=== PATIENT | male | born 1930 | race Caucasian/White ===

== ENCOUNTER → 2017-01-04 | Outpatient (CLI) | payer MEDICARE ==
--- NOTE | 2017-01-04 15:51 | REP ---
MRI LUMBAR SPINE WITHOUT CONTRAST: 01/04/2017. Clinical history: Low back pain, spondylosis without myelopathy. Technique: Sagittal T1, T2 and STIR images with axial T1 and T2 sequences. Findings: No prior studies available. Normal lordosis is maintained in the lumbar spine. Vertebral body heights are intact. There is disc space narrowing at all levels except for L3-4. There is loss of disc water signal at all levels, but least at L1-2 and L3-4. Conus terminates at the lower aspect of L2. The T9-10, T10-11, T11-12, T12-L1 disc levels all show no significant disc bulge herniation and no spinal or foraminal stenosis on the sagittal image sets. At L1-2 there is mild broad-based disc bulge with facet arthropathy and ligamentum flavum hypertrophy but cross-sectional area of the canal was adequate. Foramina show no L1 nerve root compression. At L2-3 there is a broad-based disc bulge flattening the ventral thecal sac along with ligamentum flavum facet hypertrophy. This causes some very mild central canal stenosis. The foramina show L2 nerve root compression on the left with the right only minimally adequate with loss of perineural fat. At L3-L4 there is posterior osteophytic ridge and broad-based disc bulge, ligamentum flavum and facet hypertrophy creating a moderately severe central canal stenosis with lateral recess stenosis and crowding of markings. There is fluid in the facet joints. Bilateral foraminal encroachment with nerve root compression left side and right side for those L3 roots. At L4-L5 there is a 5 mm anterolisthesis of L4 on L5 due to facet arthropathy. No definite spondylolysis. Central canal shows tight stenosis due to combined factors with ligamentum and facet hypertrophy, spondylolisthesis and facet arthropathy. Foramina show bilateral L4 nerve root compression. At L5-S1 there is a broad-based disc bulge with central disc protrusion, ligamentum flavum and facet hypertrophic changes noted. This combines to cause some central canal stenosis. The bulge abuts and displaces the S1 nerve root on the left and only abuts it on the right side of the neural canal. The foramina show bilateral narrowing with loss of perineural fat and nerve root compression on the left, minimally on the right. Multiple parapelvic and exophytic cysts in the kidneys are suggested. This is an incomplete evaluation for that. No other significant findings. Impression: 1. Multilevel degenerative disc disease with significant spinal stenosis at L4-5 with bilateral foraminal encroachment and also moderate spinal stenosis at L5-S1 and L3-4 due to combined factors with some foraminal encroachment and nerve root compression as described. Lesser degenerative disc disease at L1-2 and L2-3, and levels the levels in the lower thoracic spine were intact. 2. 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 No spondylolysis. Signed by Javon Aldrich MD 01/04/2017 05:25 P
== END ==
LOC: M RAD 13:09
PROVIDERS: ATTEND Pain Medicine Interventional Pain Medicine
DX: M47.817 Spondylosis without myelopathy or radiculopathy, lumbosacral region (principal); M51.36 Other intervertebral disc degeneration, lumbar region; M51.37 Other intervertebral disc degeneration, lumbosacral region

== ENCOUNTER → 2017-03-15 | Day surgery (SDC) | payer MEDICARE ==
[~2017-03-15] VITALS: Ht 172.7 cm; Wt 90.7 kg
[~2017-03-15] MED LIST: ACETAMINOPHEN 325 MG TAB PO PRN; AMLO5CAP52 PO; ATOR1TAB19 PO; AcetaZOLAMIDE 500 MG ER CAP As Ordered ONE; AcetaZOLAMIDE 500 MG ER CAP PO ONE; BSS with VANC/TOB/EPI for EYE CASES IR ONE; COLC1CAP PO; CYCLOPENTOLATE 2% OPHTH SOLN 2ML BTL OD ONE; FISH1000 PO; FOLI800C PO; GLUC1CAP9 PO; HEALON DUET (HEALON 10MG/ML 0.55ML & HEALON ENDOCOAT 30MG/ML 0.85ML) As Ordered ONE; HYDR25TAB PO; LIDOCAINE 1% SDV 5 ML VIAL As Ordered ONE; LIDOCAINE 4% INJ 5 ML AMP OU ONE; LOTR10CA PO; LOTR10CA2 PO; MAGN250T7 PO; MIDAZOLAM INJ 2 MG/2 ML VIAL (J2250) As Ordered ONE; MOXIFLOXACIN IN BSS 0.25MG/0.25ML INTRACAMERAL INJ (OR EYE ONLY)(J2280) As Ordered ONE; OFLOXACIN 0.3 % (OCUFLOX) OPTH SOL 5ML OD ONE; PHENYLEPHRINE 2.5% OPHTH SOL 2ML OD ONE; POVIDONE-IODINE 5% OPHTH PREP SOL 30ML As Ordered ONE; PROPARACAINE 0.5% OPHTH SOL 15ML OD PRN; TRIAMCINOLONE PRES FR 40 MG/ML 1ML(TRIESENCE)(OR EYE ONLY)(J3300 PER 1MG) As Ordered ONE; TRIMETHOBENZAMIDE 300 MG CAP PO PRN; TROPICAMIDE 1% OPHTH SOLN 2ML OD ONE; VITA100T20 PO; fentaNYL 100 MCG/2 ML INJECTION (J3010) As Ordered ONE
[2017-03-15 11:15] VITALS: BP 165/76
--- NOTE | 2017-03-29 06:01 | RO ---
DATE OF PROCEDURE: 03/15/2017 PREPROCEDURE DIAGNOSIS: Cataract right eye. POSTPROCEDURE DIAGNOSIS: Cataract right eye. PROCEDURE: Phacoemulsification with intraocular lens implantation of PCB00 power 10 Diopter. SURGEON: Vitaly Shepherd MD. DIGITAL FORENSIC EXAMINER: None. ANESTHESIA: COMPLICATIONS: None. DESCRIPTION OF PROCEDURE: The patient was brought to the operating room and laid in supine position. The right eye was prepped and draped in a sterile fashion for opthalmic surgery and a lid speculum was placed. A sideport incision was made and EndoCoat was injected into the anterior chamber. This was followed by temporal clear corneal incision followed by capsulorrhexis. Hydrodissection was then done followed by phacoemulsification in divide and conquer method. This was followed by aspiration of the cortical material and placement of Healon in the capsular bag. Intraocular lens was then inserted. Excess viscoelastic was aspirated. Intracameral moxifloxacin was given. Wound was hydrated. No leaks were noted and sub-tenon injection of Kenalog was given. Lid speculum removed. The patient was returned to the recovery room in stable condition.
== END | disposition home or self-care (01) ==
LOC: M SDC 08:22
PROVIDERS: ATTEND Ophthalmology
DX: H25.9 Unspecified age-related cataract (principal); I10 Essential (primary) hypertension; E78.5 Hyperlipidemia, unspecified; K21.9 Gastro-esophageal reflux disease without esophagitis; M10.9 Gout, unspecified; Z79.899 Other long term (current) drug therapy; Z88.8 Allergy status to other drugs, medicaments and biological substances
CPT/HCPCS: 66984; J2250; J2280; J3010; J3300; V2632

== ENCOUNTER 2017-05-06 12:51 | Emergency (ER) | payer MEDICARE ==
[~2017-05-06] VITALS: Ht 172.7 cm; Wt 90.9 kg
[~2017-05-06 12:51] MED LIST changes: -ACETAMINOPHEN 325 MG TAB PO PRN; -AcetaZOLAMIDE 500 MG ER CAP As Ordered ONE; -AcetaZOLAMIDE 500 MG ER CAP PO ONE; -BSS with VANC/TOB/EPI for EYE CASES IR ONE; -COLC1CAP PO; -CYCLOPENTOLATE 2% OPHTH SOLN 2ML BTL OD ONE; -FISH1000 PO; -FOLI800C PO; -GLUC1CAP9 PO; -HEALON DUET (HEALON 10MG/ML 0.55ML & HEALON ENDOCOAT 30MG/ML 0.85ML) As Ordered ONE; -LIDOCAINE 1% SDV 5 ML VIAL As Ordered ONE; -LIDOCAINE 4% INJ 5 ML AMP OU ONE; -MAGN250T7 PO; -MIDAZOLAM INJ 2 MG/2 ML VIAL (J2250) As Ordered ONE; -MOXIFLOXACIN IN BSS 0.25MG/0.25ML INTRACAMERAL INJ (OR EYE ONLY)(J2280) As Ordered ONE; -OFLOXACIN 0.3 % (OCUFLOX) OPTH SOL 5ML OD ONE; -PHENYLEPHRINE 2.5% OPHTH SOL 2ML OD ONE; -POVIDONE-IODINE 5% OPHTH PREP SOL 30ML As Ordered ONE; -PROPARACAINE 0.5% OPHTH SOL 15ML OD PRN; -TRIAMCINOLONE PRES FR 40 MG/ML 1ML(TRIESENCE)(OR EYE ONLY)(J3300 PER 1MG) As Ordered ONE; -TRIMETHOBENZAMIDE 300 MG CAP PO PRN; -TROPICAMIDE 1% OPHTH SOLN 2ML OD ONE; -VITA100T20 PO; -fentaNYL 100 MCG/2 ML INJECTION (J3010) As Ordered ONE
[2017-05-06 12:52] VITALS: BP 175/83
[2017-05-06] MEDS ORDERED: VITA100T20 PO (13:09)
[2017-05-06] MEDS ORDERED: MAGN250T7 PO (13:09)
[2017-05-06] MEDS ORDERED: FOLI800C PO (13:09)
[2017-05-06] MEDS ORDERED: GLUC1CAP9 PO (13:09)
[2017-05-06] MEDS ORDERED: FISH1000 PO (13:09)
[2017-05-06] MEDS ORDERED: COLC1CAP PO (13:59)
--- NOTE | 2017-05-06 14:02 | REP ---
Clinical: Pain and swelling. Technique: AP, lateral, bilateral oblique views of the left foot. Findings: Age-related osteopenia and diffuse degenerative changes are appreciated. No acute fracture dislocation. No periosteal reaction. No subcutaneous emphysema or foreign body identified. Impression: Age-related osteopenia and degenerative changes. Signed by Janusz Mccracken MD 05/06/2017 01:53 P
== END 2017-05-06 14:08 | disposition home or self-care (01) ==
LOC: M ED 12:51
DX: M25.475 Effusion, left foot (principal); M10.9 Gout, unspecified; I10 Essential (primary) hypertension; E78.5 Hyperlipidemia, unspecified; Z79.899 Other long term (current) drug therapy; Z88.8 Allergy status to other drugs, medicaments and biological substances

== ENCOUNTER → 2018-06-04 | Outpatient (REF) | payer MEDICARE ==
[2018-06-04 18:36] LABS: CPK CREATINE PHOSPHOKINASE 171 U/L (39-308)
[2018-06-07 00:09] LABS: ALDOLASE 6.6 U/L (3.3-10.3)
== END ==
LOC: M LABNEURO 16:59
DX: R26.89 Other abnormalities of gait and mobility (principal); R53.83 Other fatigue
CPT/HCPCS: 82550

== ENCOUNTER → 2019-01-31 | Outpatient (CLI) | payer MEDICARE ==
[~2019-01-31] MED LIST changes: +COLC1CAP PO; +FISH1000 PO; +FOLI800C PO; +GLUC1CAP9 PO; +MAGN250T7 PO; +VITA100T51 PO
--- NOTE | 2019-01-31 16:37 | REP ---
Left hip: Two views. History: Pain. Findings: AP and frog-leg views of the left hip demonstrate smooth rounded femoral head and intact hip joint space. There is mild superior acetabular spurring. No fracture is seen. No bony destructive lesion is seen. Impression: Mild acetabular spurring. Otherwise negative left hip radiographs. Electronically Signed by Erickson Garcia MD 01/31/2019 04:29 P
== END ==
LOC: M RAD 16:01
PROVIDERS: ATTEND Psychiatry & Neurology Neurology
DX: M25.552 Pain in left hip (principal)